=== PATIENT | male | born 1955 | race Caucasian/White ===

== ENCOUNTER 2020-12-08 09:14 | Inpatient (IN) ==
[2020-12-08] MEDS ORDERED: *HR* HYDROcodone/Acet 5/325 mg TABLET PO PRN (10:47)
[2020-12-08] MEDS ORDERED: Naloxone 0.4 MG/ML INJ IVP PRN (10:47)
[2020-12-08] MEDS ORDERED: Ondansetron 4 MG/2 ML VIAL IVP PRN (10:47)
[2020-12-08] MEDS ORDERED: Perflutren Lipid Microsphere 1.3 ML in 0.9 % Sodium Chloride 8.7 ML IVP PRN (10:50)
[2020-12-08] MEDS ORDERED: *HR* Dextrose 50 % in Water (Syg) 50 ML SYRINGE IVP PRN (10:53)
[2020-12-08] MEDS ORDERED: Dextrose Gel 15 GM/37.5 ML TUBE PO PRN ×2 (10:53)
[2020-12-08] MEDS ORDERED: D5% in Water 1,000 ML IVC PRN (10:53)
[2020-12-08] MEDS ORDERED: DilTIAZem 50 MG/50 ML IV.SOLN IVC SCH (11:00)
[2020-12-08] MEDS ORDERED: Nitroglycerin 0.4 MG TAB.SUBL SL PRN (11:12)
[2020-12-08] MEDS: DilTIAZem CD (24hr) 120 MG CAP.ER.24H PO SCH ×2 (12:08→12:09)
[2020-12-08] MEDS ORDERED: *HR* Heparin 5,000 UNIT/ML VIAL IVP PRN ×2 (12:11)
[2020-12-08] MEDS ORDERED: *HR* Heparin 5,000 UNIT/ML VIAL IVP ONE (12:11)
[2020-12-08] MEDS: Insulin LISPRO 300 UNITS/3 ML VIAL SUBQ SCH ×2 (12:12→17:40)
[2020-12-08] MEDS ORDERED: Heparin 25,000UNIT/250ML 1/2NS 25,000 UNIT/250 ML IV.SOLN IVC SCH (12:15)
[2020-12-08 13:36] LABS: Heparin anti-factor XA UFH 0.3 IU/mL (0.30-0.70)
[2020-12-08 13:37] LABS: Prothrombin Time 11.4 Seconds (9.4-12.1)
[2020-12-08 15:17] LABS: Mean Corpuscular HGB Conc 32.5 g/dL (31.6-35.5); Mean Corpuscular Hemoglobin 28.8 pg (28.0-33.3); Mean Corpuscular Volume 88.5 fL (83.0-100.0); Mean Platelet Volume 10.6 fL (9.4-12.4); Platelet Count 320 K/mcL (140-400); Red Blood Count 6.26 M/mcL (4.19-5.50); Red Cell Distribution Width 13.9 % (11.5-14.5); White Blood Count 12.5 K/mcL (4.3-11.1)
[2020-12-08 15:21] LABS: Hematocrit 55.4 % (37.5-50.1)
[2020-12-08] MEDS ORDERED: *HR* Heparin 10,000 UNIT/10 ML VIAL ONE (16:16)
[2020-12-08] MEDS ORDERED: 0.9 % Sodium Chloride 1,000 ML ONE ×2 (16:16→16:20)
[2020-12-08] MEDS ORDERED: Heparin 1,000 UNITS/500 mL 500 ML ONE (16:16)
[2020-12-08] MEDS ORDERED: ISOVUE-370 200 ML INFUS..BTL ONE (16:17)
[2020-12-08] MEDS ORDERED: Nitroglycerin 1,000 MCG/5 ML VIAL IV ONE (16:17)
[2020-12-08] MEDS ORDERED: *HR* FentaNYL (PF) 100 MCG/2 ML VIAL ONE (16:23)
[2020-12-08] MEDS ORDERED: *HR* Midazolam HCl 2 MG/2 ML VIAL ONE (16:23)
[2020-12-08 19:48] VITALS: O2SAT 92
[2020-12-08] MEDS ORDERED: Furosemide 40 MG/4 ML VIAL IVP SCH (21:00)
[2020-12-08 22:27] VITALS: BP 133/111; TEMP 98.1
[2020-12-09 00:15] VITALS: PULSE 86
[2020-12-09 02:18] LABS: Basophils % 0.2 %; Eosinophils % 0.1 %; Hematocrit 46.3 % (37.5-50.1); Immature Granulocytes % 0.3 % (0-4); Lymphocytes # 1.2 K/mcL (0.6-4.6); Mean Corpuscular Hemoglobin 28.9 pg (28.0-33.3); Mean Corpuscular Volume 87.4 fL (83.0-100.0); Mean Platelet Volume 9.9 fL (9.4-12.4); Monocytes # 1.2 K/mcL (0.0-1.3); Monocytes % 8.9 %; Platelet Count 241 K/mcL (140-400); Segmented Neutrophils % 81.5 %; White Blood Count 13.5 K/mcL (4.3-11.1)
[2020-12-09 02:20] LABS: Hemoglobin 15.3 g/dL (12.9-16.9)
[2020-12-09 02:39] LABS: BUN/Creatinine Ratio 21 (6-26); Blood Urea Nitrogen 27 mg/dL (8-23); Carbon Dioxide 18 mEq/L (23-29); Chloride 103 mEq/L (98-107); Glucose 200 mg/dL (70-105); Heparin anti-factor XA UFH 0.1 IU/mL (0.30-0.70); INR 1.1; Magnesium 2.3 mg/dL (1.6-2.6); Osmolality,Calculated 289 (280-300); Phosphorous 4.1 mg/dL (2.7-4.5); Potassium 4.3 mEq/L (3.5-5.1); Sodium 134 mEq/L (136-145); eGFR For African Americans > 60 (> 60); eGFR For Non-African Americans 57 (> 60)
[2020-12-09 02:41] LABS: Activated Partial Thrombo Time 35.1 Seconds (26.0-36.0)
[2020-12-09] MEDS ORDERED: Aspirin Enteric Coated 81 MG Tablet PO SCH (09:00)
== END 2020-12-09 02:40 | disposition short-term general hospital (02) | DRG 280 ==
LOC: 3ANU → 2NNU 22:15
PROVIDERS: ADMIT Internal Medicine; ATTEND Internal Medicine